=== PATIENT | female | born 1980 | race Caucasian/White ===

== ENCOUNTER 2017-08-25 14:00 | Emergency (ER) | payer MEDICAID, OTHER ==
[~2017-08-25] VITALS: Ht 162.6 cm; Wt 95.1 kg
[~2017-08-25 14:00] MED LIST: BUTA-281 PO; DICY10CA88 PO; FLUT16SP20 BOTHNARES; GUAI120018 PO; HYDR-3717 PO; LORA-641 PO; MAGCITRATE PO; OMEP40CA37 PO; ONDA4TAB12 PO; PHYT100T PO; ZOF4T PO
[2017-08-25] MEDS ORDERED: HYDROcodone/acetaminophen 10/325mg tab PO ONE (15:05)
[2017-08-25] MEDS ORDERED: phenazopyridine 100mg tablet PO ONE (15:05)
[2017-08-25 16:10] LABS: CLARITY,URINE CLOUDY (Clear); COLOR,URINE YELLOW (Yellow); GLUCOSE, URINE NEGATIVE (Neg); KETONES,URINE NEGATIVE (Neg); LEUKOCYTE ESTERASE ,URINE MODERATE (Neg); NITRITES, URINE NEGATIVE (Neg); OCCULT BLOOD,URINE LARGE (Neg); PROTEIN,URINE 100 mg/dl (Neg); URINE HCG NEGATIVE (NEG)
[2017-08-25 16:17] LABS: UA COLLECTION TYPE CLN CATCH MIDSTREAM
[2017-08-25 16:21] LABS: BACTERIA,URINE 4+ /HPF (Neg); MUCUS STRANDS MODERATE /LPF (Neg); SQUAMOUS EPITHELIAL CELL,UR MANY /LPF (FEW); WBC CLUMPS,URINE MODERATE /HPF (NEGATIVE); WBC,URINE 50-100 /HPF (0-4)
[2017-08-25 17:22] VITALS: BP 133/91
[2017-08-25] MEDS ORDERED: FLUC150T66 PO (17:55)
[2017-08-25] MEDS ORDERED: CLOT45CR29 VG (17:55)
== END 2017-08-25 18:06 | disposition home or self-care (01) ==
LOC: ER 14:00
DX: N76.0 Acute vaginitis (principal); I10 Essential (primary) hypertension; J45.909 Unspecified asthma, uncomplicated; G43.909 Migraine, unspecified, not intractable, without status migrainosus; G89.29 Other chronic pain; Z88.6 Allergy status to analgesic agent; Z88.8 Allergy status to other drugs, medicaments and biological substances; Z90.89 Acquired absence of other organs
CPT/HCPCS: 81001; 81025; 99283

== ENCOUNTER 2017-10-03 12:35 | Emergency (ER) | payer MEDICAID, OTHER ==
[~2017-10-03] VITALS: Ht 162.6 cm; Wt 90.4 kg
[~2017-10-03 12:35] MED LIST changes: +CLOT45CR29 VG
[2017-10-03 15:03] VITALS: BP 125/88
== END 2017-10-03 15:34 | disposition home or self-care (01) ==
LOC: ER 12:36
DX: T81.31XA Disruption of external operation (surgical) wound, not elsewhere classified, initial encounter (principal); S31.115A Laceration without foreign body of abdominal wall, periumbilic region without penetration into peritoneal cavity, initial encounter; G43.909 Migraine, unspecified, not intractable, without status migrainosus; I10 Essential (primary) hypertension; Z88.8 Allergy status to other drugs, medicaments and biological substances; Z79.899 Other long term (current) drug therapy; J45.909 Unspecified asthma, uncomplicated; Z90.49 Acquired absence of other specified parts of digestive tract; Z90.89 Acquired absence of other organs; X58.XXXA Exposure to other specified factors, initial encounter; Y93.89 Activity, other specified; Y92.89 Other specified places as the place of occurrence of the external cause; Y99.8 Other external cause status
CPT/HCPCS: 12020; 99284

== ENCOUNTER 2017-12-29 12:38 | Emergency (ER) | payer MEDICAID, OTHER ==
[~2017-12-29] VITALS: Ht 162.6 cm; Wt 100.0 kg
[2017-12-29 12:45] VITALS: BP 142/96
== END 2017-12-29 14:48 | disposition home or self-care (01) ==
LOC: ER 12:39
DX: S93.401A Sprain of unspecified ligament of right ankle, initial encounter (principal); G43.909 Migraine, unspecified, not intractable, without status migrainosus; I10 Essential (primary) hypertension; G89.29 Other chronic pain; F41.9 Anxiety disorder, unspecified; F32.9 Major depressive disorder, single episode, unspecified; Z90.49 Acquired absence of other specified parts of digestive tract; Z88.5 Allergy status to narcotic agent; Z88.6 Allergy status to analgesic agent; Z88.8 Allergy status to other drugs, medicaments and biological substances; Z87.442 Personal history of urinary calculi; X58.XXXA Exposure to other specified factors, initial encounter; Y93.89 Activity, other specified; Y92.89 Other specified places as the place of occurrence of the external cause; Y99.8 Other external cause status
CPT/HCPCS: 73610; 73700; 99284

== ENCOUNTER 2018-09-29 14:34 | Emergency (ER) | payer MEDICAID, OTHER ==
[~2018-09-29] VITALS: Ht 165.1 cm; Wt 97.0 kg
[~2018-09-29 14:34] MED LIST changes: -MAGCITRATE PO; +MAGN296S68 PO
[2018-09-29] MEDS ORDERED: ondansetron/PF 4mg/2ml inj IV ONE (15:10)
[2018-09-29] MEDS ORDERED: normal saline 1000ML IV soln IVB ONE (15:10)
[2018-09-29 15:30] LABS: BASOPHILS # (AUTO) 0.1 X10'3 (0-0.2); BASOPHILS % (AUTO) 0.5 % (0-1); EOSINOPHILS % (AUTO) 0.1 % (0-6); HEMATOCRIT 40.3 % (35.0-45.0); HEMOGLOBIN 13.3 g/dl (12.0-16.0); LYMPHOCYTES # (AUTO) 1.8 X10'3 (1.1-4.8); LYMPHOCYTES % (AUTO) 14.3 % (21-51); MEAN CORPUSCULAR HEMOGLOBIN 27.1 PG (27.0-31.0); MEAN CORPUSCULAR VOLUME 82.2 FL (78-98); MEAN PLATELET VOLUME 7.3 FL (7.4-10.4); MONOCYTES # (AUTO) 0.7 X10'3 (0-0.9); MONOCYTES % (AUTO) 5.5 % (2-12); NEUTROPHILS # (AUTO) 10.1 X10'3 (1.8-7.7); NEUTROPHILS % (AUTO) 79.6 % (42-75); PLATELET COUNT 256 X10'3 (140-440); RED BLOOD COUNT 4.91 X10'6 (4.20-5.60); RED CELL DISTRIBUTION WIDTH 13.3 % (11.5-14.5); WHITE BLOOD COUNT 12.7 X10'3 (4.5-11.0)
--- NOTE | 2018-09-29 15:30 | NUR ---
SNUBBER AT BEDSIDE.
[2018-09-29 15:43] LABS: ALANINE AMINOTRANSFERASE 27 U/L (12-78); ALBUMIN 3.5 G/DL (3.4-5.0); ALBUMIN/GLOBULIN RATIO 0.9 (1.1-1.5); ALKALINE PHOSPHATASE 71 IU/L (46-116); ANION GAP 9 (8-16); ASPARTATE AMINO TRANSFERASE 15 U/L (10-37); BILIRUBIN,TOTAL 0.5 MG/DL (0.1-1.0); BLOOD UREA NITROGEN 9 MG/DL (7-18); BUN/CREATININE RATIO 11.5 (6.6-38.0); CALCIUM 9.2 MG/DL (8.5-10.1); CHLORIDE 103 MMOL/L (99-107); CREATININE 0.78 MG/DL (0.40-0.90); GLUCOSE 91 MG/DL (70-104); POTASSIUM 3.3 MMOL/L (3.5-5.1); SODIUM 137 MMOL/L (135-145); TOTAL CARBON DIOXIDE 25.4 MMOL/L (24-32); TOTAL PROTEIN 7.5 G/DL (6.4-8.2); eGFR 83 ML/MIN
[2018-09-29 16:08] LABS: BETA HCG,QUANTITATIVE 88910 mIU/ml
[2018-09-29 16:17] LABS: CLARITY,URINE SLIGHTLY CLOUDY (Clear); COLOR,URINE YELLOW (Yellow); GLUCOSE, URINE NEGATIVE (Neg); KETONES,URINE 40 mg/dl (Neg); LEUKOCYTE ESTERASE ,URINE NEGATIVE (Neg); NITRITES, URINE NEGATIVE (Neg); OCCULT BLOOD,URINE NEGATIVE (Neg); PH,URINE 6.5 (4.8-8.0); PROTEIN,URINE TRACE mg/dl (Neg)
[2018-09-29 16:20] LABS: UA COLLECTION TYPE CLN CATCH MIDSTREAM
[2018-09-29 16:31] LABS: BACTERIA,URINE 1+ /HPF (Neg); MUCUS STRANDS MODERATE /LPF (Neg); RBC,URINE NONE SEEN /HPF (0-2); SQUAMOUS EPITHELIAL CELL,UR MANY /LPF (FEW)
[2018-09-29] MEDS ORDERED: CEPH-571 PO (16:44)
[2018-09-29] MEDS ORDERED: ONDA4TAB6 PO (16:44)
--- NOTE | 2018-09-29 17:05 | NUR ---
DC INSTRUCTIONS GIVEN TO PATIENT. PATIENT STATES THAT SHE CONTINUES TO NOT FEEL WELL AND IS STILL HAVING WAVES OF NAUSEA. STATES THAT SHE HAS HAD SEVERE NAUSEA AND VOMITING WITH EACH OF HER PAST PREGNANCIES AND HAS BEEN ON SEVERAL DIFFERENT ANTI-NAUSEA MEDS IN THE PAST. DISCUSSED USE OF MEDS AND TO RETURN TO THE ER IF HER N/V PERSISTS AND SHE IS UNABLE TO KEEP ANYTHING DOWN. IV REMOVED WITH TIP INTACT.
[2018-09-29 17:21] VITALS: BP 144/95
[2018-09-30] MEDS ORDERED: DOXY1TAB3 PO (11:34)
== END 2018-09-29 17:24 | disposition home or self-care (01) ==
LOC: ER 14:34
DX: O23.41 Unspecified infection of urinary tract in pregnancy, first trimester (principal); O21.9 Vomiting of pregnancy, unspecified; O26.891 Other specified pregnancy related conditions, first trimester; G43.909 Migraine, unspecified, not intractable, without status migrainosus; G89.29 Other chronic pain; O10.911 Unspecified pre-existing hypertension complicating pregnancy, first trimester; O99.511 Diseases of the respiratory system complicating pregnancy, first trimester; J45.909 Unspecified asthma, uncomplicated; Z90.49 Acquired absence of other specified parts of digestive tract; Z79.899 Other long term (current) drug therapy; Z3A.08 8 weeks gestation of pregnancy; Z88.6 Allergy status to analgesic agent; Z88.8 Allergy status to other drugs, medicaments and biological substances; Z87.442 Personal history of urinary calculi
CPT/HCPCS: 36415; 76775; 80053; 81001; 84702; 85025; 96361; 96374; 99284; J2405; J7030

== ENCOUNTER 2018-09-30 09:15 | Emergency (ER) | payer MEDICAID, OTHER ==
[~2018-09-30] VITALS: Ht 165.1 cm; Wt 103.0 kg
[~2018-09-30 09:15] MED LIST changes: +CEPH-571 PO; +ONDA4TAB6 PO
[2018-09-30] MEDS ORDERED: normal saline 1000ML IV soln IVB ONE ×2 (10:20→13:20)
[2018-09-30 11:04] LABS: BASOPHILS % (AUTO) 0.4 % (0-1); EOSINOPHILS % (AUTO) 0.1 % (0-6); HEMATOCRIT 38.8 % (35.0-45.0); HEMOGLOBIN 13.3 g/dl (12.0-16.0); LYMPHOCYTES # (AUTO) 1.7 X10'3 (1.1-4.8); LYMPHOCYTES % (AUTO) 16.4 % (21-51); MEAN CORPUSCULAR HEMOGLOBIN 27.8 PG (27.0-31.0); MEAN CORPUSCULAR HGB CONC 34.3 g/dL (33.0-36.5); MEAN PLATELET VOLUME 7.4 FL (7.4-10.4); MONOCYTES # (AUTO) 0.5 X10'3 (0-0.9); MONOCYTES % (AUTO) 5.3 % (2-12); NEUTROPHILS % (AUTO) 77.8 % (42-75); PLATELET COUNT 256 X10'3 (140-440); RED BLOOD COUNT 4.79 X10'6 (4.20-5.60); RED CELL DISTRIBUTION WIDTH 13.6 % (11.5-14.5); WHITE BLOOD COUNT 10.3 X10'3 (4.5-11.0)
[2018-09-30] MEDS ORDERED: pyridoxine 50mg tablet PO SCH (11:05)
[2018-09-30 11:06] LABS: CLARITY,URINE CLOUDY (Clear); COLOR,URINE YELLOW (Yellow); GLUCOSE, URINE NEGATIVE (Neg); KETONES,URINE >=80 mg/dl (Neg); LEUKOCYTE ESTERASE ,URINE SMALL (Neg); NITRITES, URINE NEGATIVE (Neg); OCCULT BLOOD,URINE NEGATIVE (Neg); PROTEIN,URINE TRACE mg/dl (Neg)
[2018-09-30 11:19] LABS: ALANINE AMINOTRANSFERASE 31 U/L (12-78); ALBUMIN 3.2 G/DL (3.4-5.0); ALBUMIN/GLOBULIN RATIO 0.8 (1.1-1.5); ALKALINE PHOSPHATASE 67 IU/L (46-116); ANION GAP 11 (8-16); ASPARTATE AMINO TRANSFERASE 18 U/L (10-37); BILIRUBIN,TOTAL 0.6 MG/DL (0.1-1.0); BLOOD UREA NITROGEN 6 MG/DL (7-18); BUN/CREATININE RATIO 8.1 (6.6-38.0); CALCIUM 8.9 MG/DL (8.5-10.1); CHLORIDE 104 MMOL/L (99-107); CREATININE 0.74 MG/DL (0.40-0.90); GLUCOSE 88 MG/DL (70-104); LIPASE 123 U/L (73-393); POTASSIUM 3.5 MMOL/L (3.5-5.1); SODIUM 137 MMOL/L (135-145); TOTAL CARBON DIOXIDE 22.5 MMOL/L (24-32); TOTAL PROTEIN 7.1 G/DL (6.4-8.2); eGFR 88 ML/MIN
[2018-09-30 11:19] LABS: UA COLLECTION TYPE CLN CATCH MIDSTREAM
[2018-09-30 11:21] LABS: BACTERIA,URINE 2+ /HPF (Neg); MUCUS STRANDS MANY /LPF (Neg); RBC,URINE 0-2 /HPF (0-2); SQUAMOUS EPITHELIAL CELL,UR MANY /LPF (FEW)
[2018-09-30] MEDS ORDERED: DOXY1TAB3 PO (11:34)
[2018-09-30] MEDS ORDERED: ondansetron/PF 4mg/2ml inj IV ONE ×2 (12:00→13:20)
[2018-09-30] MEDS ORDERED: diphenhydrAMINE 50 mg/ml inj IV ONE (12:00)
[2018-09-30 14:04] VITALS: BP 140/88
== END 2018-09-30 14:10 | disposition home or self-care (01) ==
LOC: ER 09:16
DX: O21.9 Vomiting of pregnancy, unspecified (principal); O26.891 Other specified pregnancy related conditions, first trimester; G43.909 Migraine, unspecified, not intractable, without status migrainosus; G89.29 Other chronic pain; Z3A.08 8 weeks gestation of pregnancy; Z90.49 Acquired absence of other specified parts of digestive tract; Z87.442 Personal history of urinary calculi; Z88.6 Allergy status to analgesic agent; Z79.899 Other long term (current) drug therapy
CPT/HCPCS: 36415; 80053; 81001; 83690; 85025; 96361; 96374; 96375; 96376; 99284; J1200; J2405; J7030

== ENCOUNTER 2018-09-30 21:08 | Emergency (ER) | payer MEDICAID, OTHER ==
[~2018-09-30] VITALS: Ht 165.1 cm; Wt 103.6 kg
[~2018-09-30 21:08] MED LIST changes: +DOXY1TAB3 PO
[2018-09-30 21:23] VITALS: BP 141/97
[2018-09-30] MEDS ORDERED: diphenhydrAMINE 25mg capsule PO ONE (22:10)
[2018-09-30] MEDS ORDERED: cephalexin 250mg capsule PO ONE (22:35)
== END 2018-09-30 22:56 | disposition home or self-care (01) ==
LOC: ER 22:52
DX: O21.9 Vomiting of pregnancy, unspecified (principal); O9A.211 Injury, poisoning and certain other consequences of external causes complicating pregnancy, first trimester; T78.40XA Allergy, unspecified, initial encounter; O26.891 Other specified pregnancy related conditions, first trimester; G43.909 Migraine, unspecified, not intractable, without status migrainosus; G89.29 Other chronic pain; O10.911 Unspecified pre-existing hypertension complicating pregnancy, first trimester; O99.511 Diseases of the respiratory system complicating pregnancy, first trimester; J45.909 Unspecified asthma, uncomplicated; Z90.49 Acquired absence of other specified parts of digestive tract; Z88.6 Allergy status to analgesic agent; Z3A.08 8 weeks gestation of pregnancy; Z88.8 Allergy status to other drugs, medicaments and biological substances; Z79.899 Other long term (current) drug therapy; Y92.89 Other specified places as the place of occurrence of the external cause
CPT/HCPCS: 93005; 99283; Q0163

== ENCOUNTER 2018-10-18 19:06 | Inpatient (IN) | payer SELFPAY ==
[~2018-10-18] VITALS: Ht 152.4 cm; Wt 100.0 kg
[~2018-10-18 19:06] MED LIST changes: +OMEP40CA13 PO; -OMEP40CA37 PO
[2018-10-18] MEDS ORDERED: normal saline 1000ml 1,000 ML IVB ONE (19:18)
[2018-10-18 19:37] LABS: URINE HCG POSITIVE (NEG)
[2018-10-18 19:39] LABS: CLARITY,URINE CLOUDY (Clear); COLOR,URINE YELLOW (Yellow); GLUCOSE, URINE NEGATIVE (Neg); KETONES,URINE TRACE mg/dl (Neg); LEUKOCYTE ESTERASE ,URINE MODERATE (Neg); NITRITES, URINE NEGATIVE (Neg); OCCULT BLOOD,URINE NEGATIVE (Neg); PROTEIN,URINE 30 mg/dl (Neg)
[2018-10-18 19:42] LABS: UA COLLECTION TYPE NON-SPECIFIED
[2018-10-18 19:42] LABS: BASOPHILS % (AUTO) 0.3 % (0-1); EOSINOPHILS % (AUTO) 0.2 % (0-6); HEMATOCRIT 42.4 % (35.0-45.0); HEMOGLOBIN 14.5 g/dl (12.0-16.0); LYMPHOCYTES # (AUTO) 2.2 X10'3 (1.1-4.8); LYMPHOCYTES % (AUTO) 17.8 % (21-51); MEAN CORPUSCULAR HEMOGLOBIN 28.1 PG (27.0-31.0); MEAN CORPUSCULAR HGB CONC 34.3 g/dL (33.0-36.5); MEAN CORPUSCULAR VOLUME 82.1 FL (78-98); MEAN PLATELET VOLUME 7.4 FL (7.4-10.4); MONOCYTES # (AUTO) 0.7 X10'3 (0-0.9); MONOCYTES % (AUTO) 5.6 % (2-12); NEUTROPHILS # (AUTO) 9.3 X10'3 (1.8-7.7); NEUTROPHILS % (AUTO) 76.1 % (42-75); PLATELET COUNT 313 X10'3 (140-440); RED BLOOD COUNT 5.16 X10'6 (4.20-5.60); RED CELL DISTRIBUTION WIDTH 14.5 % (11.5-14.5); WHITE BLOOD COUNT 12.3 X10'3 (4.5-11.0)
[2018-10-18 19:44] LABS: BACTERIA,URINE FEW /HPF (Neg); MUCUS STRANDS MODERATE /LPF (Neg); RBC,URINE NONE SEEN /HPF (0-2); SQUAMOUS EPITHELIAL CELL,UR MODERATE /LPF (FEW)
[2018-10-18 19:54] LABS: ALANINE AMINOTRANSFERASE 46 U/L (12-78); ALBUMIN 3.4 G/DL (3.4-5.0); ALBUMIN/GLOBULIN RATIO 0.7 (1.1-1.5); ALKALINE PHOSPHATASE 92 IU/L (46-116); ANION GAP 12 (8-16); ASPARTATE AMINO TRANSFERASE 25 U/L (10-37); BILIRUBIN,TOTAL 0.3 MG/DL (0.1-1.0); BLOOD UREA NITROGEN 4 MG/DL (7-18); BUN/CREATININE RATIO 5.7 (6.6-38.0); CALCIUM 9.3 MG/DL (8.5-10.1); CHLORIDE 104 MMOL/L (99-107); GLUCOSE 100 MG/DL (70-104); POTASSIUM 3.8 MMOL/L (3.5-5.1); SODIUM 139 MMOL/L (135-145); TOTAL CARBON DIOXIDE 23.4 MMOL/L (24-32); TOTAL PROTEIN 8.1 G/DL (6.4-8.2); eGFR > 90 ML/MIN
[2018-10-18 20:31] LABS: BETA HCG,QUANTITATIVE 67696 mIU/ml
[2018-10-18] MEDS ORDERED: CefTRIAXone/D5W-Rocephin 1gm 50 ML IV ONE (20:35)
[2018-10-18] MEDS ORDERED: CEPH-572 PO (20:51)
[2018-10-18] MEDS ORDERED: morphine 2 MG/ML inj. syringe IV ONE (21:10)
[2018-10-18] MEDS ORDERED: ondansetron/PF 4mg/2ml inj IV ONE (21:10)
[2018-10-18] MEDS ORDERED: magnesium 2GM in 50ml NS 50 ML IV PRN (22:40)
[2018-10-18] MEDS ORDERED: magnesium Cl slow-release 64mg tablet PO PRN (22:40)
[2018-10-18] MEDS ORDERED: potassium CL 10mEq/100ml bag 100 ML IV PRN ×2 (22:40)
[2018-10-18] MEDS ORDERED: magnesium 4gm in 100ml NS 100 ML IV PRN (22:40)
[2018-10-18] MEDS ORDERED: potassium Cl 20 mEq SR tablet PO PRN ×2 (22:40)
--- NOTE | 2018-10-18 22:55 | NUR ---
Received report from BLINDSTITCH LAPEL PADDERBEVERLY Bach. Patient to follow shortly.
--- NOTE | 2018-10-18 23:10 | NUR ---
Patient arrived to floor via gurney. A&Ox4, and ambulated from gurney to bed.
[2018-10-18 23:30] VITALS: BP 124/72
[2018-10-18] MEDS: normal saline 1000ml 1,000 ML IV SCH (23:37)
[2018-10-18] MEDS: ondansetron/PF 4mg/2ml inj IV PRN (23:49)
--- NOTE | 2018-10-19 | NUR ---
Patients' PIV to RAC stopped working, cannula had become bent. New PIV started to LAC. Fluids hooked back up and infusing.
[2018-10-19 05:23] LABS: BASOPHILS % (AUTO) 0.2 % (0-1); EOSINOPHILS % (AUTO) 0.1 % (0-6); HEMATOCRIT 34.4 % (35.0-45.0); HEMOGLOBIN 11.6 g/dl (12.0-16.0); LYMPHOCYTES # (AUTO) 2.4 X10'3 (1.1-4.8); LYMPHOCYTES % (AUTO) 24.7 % (21-51); MEAN CORPUSCULAR HEMOGLOBIN 28.2 PG (27.0-31.0); MEAN CORPUSCULAR HGB CONC 33.8 g/dL (33.0-36.5); MEAN CORPUSCULAR VOLUME 83.5 FL (78-98); MEAN PLATELET VOLUME 7.4 FL (7.4-10.4); MONOCYTES # (AUTO) 0.6 X10'3 (0-0.9); MONOCYTES % (AUTO) 5.7 % (2-12); NEUTROPHILS # (AUTO) 6.7 X10'3 (1.8-7.7); NEUTROPHILS % (AUTO) 69.3 % (42-75); PLATELET COUNT 233 X10'3 (140-440); RED BLOOD COUNT 4.12 X10'6 (4.20-5.60); RED CELL DISTRIBUTION WIDTH 14.1 % (11.5-14.5); WHITE BLOOD COUNT 9.7 X10'3 (4.5-11.0)
[2018-10-19 05:28] LABS: ALBUMIN 2.5 G/DL (3.4-5.0); ANION GAP 8 (8-16); BLOOD UREA NITROGEN 5 MG/DL (7-18); BUN/CREATININE RATIO 9.3 (6.6-38.0); CALCIUM 8.2 MG/DL (8.5-10.1); CHLORIDE 109 MMOL/L (99-107); CREATININE 0.54 MG/DL (0.40-0.90); GLUCOSE 77 MG/DL (70-104); MAGNESIUM 1.6 MG/DL (1.5-2.4); POTASSIUM 3.3 MMOL/L (3.5-5.1); SODIUM 140 MMOL/L (135-145); TOTAL CARBON DIOXIDE 23.3 MMOL/L (24-32); eGFR > 90 ML/MIN
--- NOTE | 2018-10-19 06:30 | NUR ---
Problems reprioritized. Patient report given, questions answered & plan of care reviewed with Lisandra PAUL.
[2018-10-19 07:00] VITALS: BP 118/80
--- NOTE | 2018-10-19 07:07 | NUR ---
Patient in room SU 344. I have received report from Noemí PAUL and had the opportunity to ask questions and assume patient care.
[2018-10-19] MEDS: morphine 2 MG/ML inj. syringe IV PRN ×4 (07:18→19:55)
[2018-10-19] MEDS: ondansetron/PF 4mg/2ml inj IV PRN ×3 (07:18→19:53)
[2018-10-19] MEDS: CefTRIAXone/D5W-Rocephin 1gm 50 ML IV SCH (07:19)
[2018-10-19] MEDS: K and/or MAG REPLACEMENT MC SCH (08:00)
[2018-10-19] MEDS ORDERED: potassium Cl 40MEQ/NS 500ml 500 ML IV ONE (08:05)
[2018-10-19] MEDS: normal saline 1000ml 1,000 ML IV SCH ×2 (08:37→10:36)
[2018-10-19] MEDS ORDERED: bisacodyl 5mg tablet.DR PO ONE (08:45)
[2018-10-19 11:00] VITALS: BP 123/82
--- NOTE | 2018-10-19 18:44 | NUR ---
Problems reprioritized. Patient report given, questions answered & plan of care reviewed with Pat RN.
[2018-10-19 19:30] VITALS: BP 128/93
--- NOTE | 2018-10-19 19:30 | NUR ---
pt voided in toilet (behind HAT); states she has cramping when to urinated Addendum: 10/20/18 at 0054 by Ledy Kunz RN Amended: Links added.
[2018-10-19] MEDS: lactobacillus rhamnosus 10,000 MMU CELLS/CAPSULE PO SCH (19:56)
[2018-10-20] VITALS: BP 117/76
[2018-10-20] MEDS: ondansetron/PF 4mg/2ml inj IV PRN ×2 (02:53→09:27)
[2018-10-20] MEDS: morphine 2 MG/ML inj. syringe IV PRN (02:54)
[2018-10-20 05:45] LABS: ALBUMIN 2.6 G/DL (3.4-5.0); ANION GAP 13 (8-16); BLOOD UREA NITROGEN 2 MG/DL (7-18); BUN/CREATININE RATIO 3.7 (6.6-38.0); CALCIUM 8.9 MG/DL (8.5-10.1); CHLORIDE 107 MMOL/L (99-107); CREATININE 0.54 MG/DL (0.40-0.90); GLUCOSE 68 MG/DL (70-104); MAGNESIUM 1.7 MG/DL (1.5-2.4); POTASSIUM 3.7 MMOL/L (3.5-5.1); SODIUM 140 MMOL/L (135-145); TOTAL CARBON DIOXIDE 20.1 MMOL/L (24-32); eGFR > 90 ML/MIN
[2018-10-20 05:46] LABS: BASOPHILS % (AUTO) 0.2 % (0-1); EOSINOPHILS % (AUTO) 0.1 % (0-6); HEMATOCRIT 36.4 % (35.0-45.0); HEMOGLOBIN 12.2 g/dl (12.0-16.0); LYMPHOCYTES # (AUTO) 1.9 X10'3 (1.1-4.8); LYMPHOCYTES % (AUTO) 20.7 % (21-51); MEAN CORPUSCULAR HEMOGLOBIN 28.2 PG (27.0-31.0); MEAN CORPUSCULAR HGB CONC 33.6 g/dL (33.0-36.5); MEAN PLATELET VOLUME 7.5 FL (7.4-10.4); MONOCYTES # (AUTO) 0.5 X10'3 (0-0.9); MONOCYTES % (AUTO) 5.2 % (2-12); NEUTROPHILS # (AUTO) 6.8 X10'3 (1.8-7.7); NEUTROPHILS % (AUTO) 73.8 % (42-75); PLATELET COUNT 232 X10'3 (140-440); RED BLOOD COUNT 4.33 X10'6 (4.20-5.60); RED CELL DISTRIBUTION WIDTH 14.5 % (11.5-14.5); WHITE BLOOD COUNT 9.2 X10'3 (4.5-11.0)
--- NOTE | 2018-10-20 06:34 | NUR ---
Patient in room SU 344. I have received report from Pat RN and had the opportunity to ask questions and assume patient care.
[2018-10-20 07:00] VITALS: BP 118/78
[2018-10-20] MEDS: K and/or MAG REPLACEMENT MC SCH (08:00)
[2018-10-20] MEDS: lactobacillus rhamnosus 10,000 MMU CELLS/CAPSULE PO SCH (08:05)
[2018-10-20] MEDS: CefTRIAXone/D5W-Rocephin 1gm 50 ML IV SCH (08:07)
[2018-10-20] MEDS: normal saline 1000ml 1,000 ML IV SCH ×2 (08:07)
[2018-10-20] MEDS ORDERED: DOCU-148 PO (09:30)
--- NOTE | 2018-10-20 10:40 | NUR ---
Patient trying to contact family for discharge. Has not been able to get ahold of anyone yet.
--- NOTE | 2018-10-20 11:49 | NUR ---
Patients discharge instructions reviewed with patient and patient verbalized understanding. Patients IV dc'd cannula intact. Patient states she has all her belongings. Patient was taken to vehicle via wheelchair by auxillary.
== END 2018-10-20 11:40 | disposition home or self-care (01) | DRG 776 ==
LOC: ER 19:07 → SUR 3N 23:06 → CMPBEDREQ 10-19 15:16
PROVIDERS: ADMIT Internal Medicine; ATTEND Internal Medicine
DX: O99.89 Other specified diseases and conditions complicating pregnancy, childbirth and the puerperium (principal); J45.909 Unspecified asthma, uncomplicated; K21.9 Gastro-esophageal reflux disease without esophagitis; N20.0 Calculus of kidney; O99.351 Diseases of the nervous system complicating pregnancy, first trimester; O99.511 Diseases of the respiratory system complicating pregnancy, first trimester; O99.341 Other mental disorders complicating pregnancy, first trimester; F41.8 Other specified anxiety disorders; O99.611 Diseases of the digestive system complicating pregnancy, first trimester; G43.909 Migraine, unspecified, not intractable, without status migrainosus; Z3A.11 11 weeks gestation of pregnancy; Z88.6 Allergy status to analgesic agent; Z88.8 Allergy status to other drugs, medicaments and biological substances; Z79.899 Other long term (current) drug therapy; Z90.49 Acquired absence of other specified parts of digestive tract
CPT/HCPCS: 36415; 76775; 80048; 80053; 81001; 81025; 83735; 84702; 85025; 85610; 87081; 87088; 96365; 96375; 99285; G0378; J0696; J2270; J2405; J3480; J7030

== ENCOUNTER 2018-10-23 17:36 | Emergency (ER) | payer SELFPAY ==
[~2018-10-23] VITALS: Ht 165.1 cm; Wt 98.0 kg
[~2018-10-23 17:36] MED LIST changes: -BUTA-281 PO; -CEPH-571 PO; -CLOT45CR29 VG; -DICY10CA88 PO; +DOCU-148 PO; -DOXY1TAB3 PO; -FLUT16SP20 BOTHNARES; -GUAI120018 PO; -HYDR-3717 PO; -LORA-641 PO; -MAGN296S68 PO; -OMEP40CA13 PO; -ONDA4TAB6 PO; -PHYT100T PO; -ZOF4T PO
[2018-10-23] MEDS ORDERED: normal saline 1000ML IV soln IVB ONE (18:00)
[2018-10-23] MEDS ORDERED: ondansetron/PF 4mg/2ml inj IV ONE (18:00)
[2018-10-23 18:14] LABS: BASOPHILS % (AUTO) 0.4 % (0-1); EOSINOPHILS % (AUTO) 0.1 % (0-6); HEMOGLOBIN 14.1 g/dl (12.0-16.0); LYMPHOCYTES # (AUTO) 1.6 X10'3 (1.1-4.8); LYMPHOCYTES % (AUTO) 13.8 % (21-51); MEAN CORPUSCULAR HEMOGLOBIN 28.5 PG (27.0-31.0); MEAN CORPUSCULAR HGB CONC 34.4 g/dL (33.0-36.5); MEAN CORPUSCULAR VOLUME 82.9 FL (78-98); MEAN PLATELET VOLUME 7.3 FL (7.4-10.4); MONOCYTES # (AUTO) 0.5 X10'3 (0-0.9); MONOCYTES % (AUTO) 4.4 % (2-12); NEUTROPHILS # (AUTO) 9.5 X10'3 (1.8-7.7); NEUTROPHILS % (AUTO) 81.3 % (42-75); PLATELET COUNT 266 X10'3 (140-440); RED BLOOD COUNT 4.94 X10'6 (4.20-5.60); RED CELL DISTRIBUTION WIDTH 14.7 % (11.5-14.5); WHITE BLOOD COUNT 11.7 X10'3 (4.5-11.0)
[2018-10-23] MEDS ORDERED: DOXY1TAB3 PO (18:42)
[2018-10-23 18:44] LABS: ALANINE AMINOTRANSFERASE 41 U/L (12-78); ALBUMIN 3.1 G/DL (3.4-5.0); ALBUMIN/GLOBULIN RATIO 0.7 (1.1-1.5); ALKALINE PHOSPHATASE 90 IU/L (46-116); ANION GAP 12 (8-16); ASPARTATE AMINO TRANSFERASE 12 U/L (10-37); BILIRUBIN,TOTAL 0.4 MG/DL (0.1-1.0); BLOOD UREA NITROGEN 8 MG/DL (7-18); BUN/CREATININE RATIO 12.5 (6.6-38.0); CALCIUM 9.1 MG/DL (8.5-10.1); CHLORIDE 104 MMOL/L (99-107); CREATININE 0.64 MG/DL (0.40-0.90); GLUCOSE 80 MG/DL (70-104); POTASSIUM 3.6 MMOL/L (3.5-5.1); SODIUM 139 MMOL/L (135-145); TOTAL CARBON DIOXIDE 22.7 MMOL/L (24-32); TOTAL PROTEIN 7.4 G/DL (6.4-8.2); eGFR > 90 ML/MIN
[2018-10-23 19:21] VITALS: BP 130/92
[2018-10-23] MEDS ORDERED: ONDA4TAB6 PO (19:48)
[2018-10-23] MEDS ORDERED: diphenhydrAMINE 50 mg/ml inj IV ONE (19:50)
== END 2018-10-23 20:00 | disposition home or self-care (01) ==
LOC: ER 17:37
DX: O21.9 Vomiting of pregnancy, unspecified (principal); O16.1 Unspecified maternal hypertension, first trimester; O99.341 Other mental disorders complicating pregnancy, first trimester; O99.511 Diseases of the respiratory system complicating pregnancy, first trimester; O26.891 Other specified pregnancy related conditions, first trimester; R11.0 Nausea; F41.9 Anxiety disorder, unspecified; F32.9 Major depressive disorder, single episode, unspecified; G43.909 Migraine, unspecified, not intractable, without status migrainosus; G89.29 Other chronic pain; Z87.442 Personal history of urinary calculi; Z90.49 Acquired absence of other specified parts of digestive tract; Z90.89 Acquired absence of other organs; Z98.890 Other specified postprocedural states; Z88.6 Allergy status to analgesic agent; Z88.8 Allergy status to other drugs, medicaments and biological substances; Z79.899 Other long term (current) drug therapy; Z3A.12 12 weeks gestation of pregnancy
CPT/HCPCS: 36415; 80053; 85025; 96361; 96374; 96375; 99284; J1200; J2405; J7030

== ENCOUNTER 2018-10-27 19:40 | Emergency (ER) | payer SELFPAY ==
[~2018-10-27] VITALS: Ht 152.4 cm; Wt 96.0 kg
[~2018-10-27 19:40] MED LIST changes: +DOXY1TAB3 PO; +ONDA4TAB6 PO
[2018-10-27] MEDS ORDERED: dextrose 5%-normal saline 1,000 ML IV ONE ×2 (20:15→23:50)
[2018-10-27 20:26] LABS: URINE HCG POSITIVE (NEG)
[2018-10-27 20:28] LABS: CLARITY,URINE CLOUDY (Clear); COLOR,URINE YELLOW (Yellow); GLUCOSE, URINE NEGATIVE (Neg); KETONES,URINE >=80 mg/dl (Neg); LEUKOCYTE ESTERASE ,URINE TRACE (Neg); NITRITES, URINE NEGATIVE (Neg); OCCULT BLOOD,URINE NEGATIVE (Neg); PROTEIN,URINE 30 mg/dl (Neg)
[2018-10-27 20:29] LABS: UA COLLECTION TYPE CLN CATCH MIDSTREAM
[2018-10-27] MEDS ORDERED: famotidine/PF 10 mg/ml inj IV ONE (20:40)
[2018-10-27] MEDS ORDERED: ondansetron/PF 4mg/2ml inj IV ONE (20:40)
[2018-10-27 20:41] LABS: BACTERIA,URINE 1+ /HPF (Neg); RBC,URINE NONE SEEN /HPF (0-2); SQUAMOUS EPITHELIAL CELL,UR MODERATE /LPF (FEW)
[2018-10-27 20:42] LABS: MUCUS STRANDS FEW /LPF (Neg)
[2018-10-27] MEDS ORDERED: DOXY1TAB3 PO (20:43)
[2018-10-27 20:48] LABS: BASOPHILS % (AUTO) 0.3 % (0-1); EOSINOPHILS % (AUTO) 0.1 % (0-6); HEMATOCRIT 41.8 % (35.0-45.0); HEMOGLOBIN 14.6 g/dl (12.0-16.0); LYMPHOCYTES # (AUTO) 1.9 X10'3 (1.1-4.8); LYMPHOCYTES % (AUTO) 16.8 % (21-51); MEAN CORPUSCULAR HEMOGLOBIN 28.8 PG (27.0-31.0); MEAN CORPUSCULAR VOLUME 82.4 FL (78-98); MEAN PLATELET VOLUME 7.8 FL (7.4-10.4); MONOCYTES # (AUTO) 0.6 X10'3 (0-0.9); MONOCYTES % (AUTO) 5.6 % (2-12); NEUTROPHILS # (AUTO) 8.9 X10'3 (1.8-7.7); NEUTROPHILS % (AUTO) 77.2 % (42-75); PLATELET COUNT 260 X10'3 (140-440); RED BLOOD COUNT 5.08 X10'6 (4.20-5.60); RED CELL DISTRIBUTION WIDTH 14.6 % (11.5-14.5); WHITE BLOOD COUNT 11.5 X10'3 (4.5-11.0)
[2018-10-27 20:58] LABS: ALANINE AMINOTRANSFERASE 34 U/L (12-78); ALBUMIN 3.3 G/DL (3.4-5.0); ALBUMIN/GLOBULIN RATIO 0.7 (1.1-1.5); ALKALINE PHOSPHATASE 95 IU/L (46-116); ANION GAP 12 (8-16); ASPARTATE AMINO TRANSFERASE 12 U/L (10-37); BILIRUBIN,TOTAL 0.4 MG/DL (0.1-1.0); BLOOD UREA NITROGEN 5 MG/DL (7-18); BUN/CREATININE RATIO 7.5 (6.6-38.0); CALCIUM 9.3 MG/DL (8.5-10.1); CHLORIDE 104 MMOL/L (99-107); CREATININE 0.67 MG/DL (0.40-0.90); GLUCOSE 86 MG/DL (70-104); POTASSIUM 3.6 MMOL/L (3.5-5.1); SODIUM 137 MMOL/L (135-145); TOTAL CARBON DIOXIDE 20.7 MMOL/L (24-32); TOTAL PROTEIN 7.8 G/DL (6.4-8.2); eGFR > 90 ML/MIN
--- NOTE | 2018-10-27 21:09 | NUR ---
VERBERAL ORDER FROM DR JIMENEZ TO BOLUS 2L D5NS IV.
[2018-10-27 21:20] LABS: BETA HCG,QUANTITATIVE 57489 mIU/ml
[2018-10-27] MEDS: dextrose 5%-normal saline 1,000 ML IV SCH ×2 (21:30→22:20)
--- NOTE | 2018-10-27 22:18 | NUR ---
emesis x1 50cc bile in color
[2018-10-27] MEDS ORDERED: proMETHazine 25mg tablet PO ONE (22:50)
--- NOTE | 2018-10-28 01:25 | NUR ---
dc paperwork recevied, vs obtained and IV pulled for pov transfer to [facility] where she was to be directly sent to OBGYN upon arrival at their ER. While processing depart assessment [facility] called to say pt would not have a room ready and that she will have to be a facility:facility transfer. Gurinder De Jesus and Dr Guthrie in process of determining procedural process necesary for pt's care by Dr Arriaga @ [facility]. Pt in bed awaiting disposition; in truck asleep.
[2018-10-28 01:30] VITALS: BP 153/74
--- NOTE | 2018-10-28 01:58 | NUR ---
RN:RN WITH BEVERLY WHYTE @ [facility] ([phone]), FOR POV TRANSFER TO PEDS DEPARTMENT BED 8a. PT PROVIDED PACKET AND VERBALIZED UNDERSTANDING OF TRANSFER INSTRUCTIONS.
== END 2018-10-28 02:09 | disposition short-term general hospital (02) ==
LOC: ER 19:40
DX: O21.0 Mild hyperemesis gravidarum (principal); O00.01 Abdominal pregnancy with intrauterine pregnancy; O26.891 Other specified pregnancy related conditions, first trimester; O99.341 Other mental disorders complicating pregnancy, first trimester; O16.1 Unspecified maternal hypertension, first trimester; O99.511 Diseases of the respiratory system complicating pregnancy, first trimester; R10.13 Epigastric pain; R10.32 Left lower quadrant pain; R10.31 Right lower quadrant pain; G43.909 Migraine, unspecified, not intractable, without status migrainosus; J45.909 Unspecified asthma, uncomplicated; G89.29 Other chronic pain; F41.8 Other specified anxiety disorders; Z90.49 Acquired absence of other specified parts of digestive tract; Z90.89 Acquired absence of other organs; Z98.890 Other specified postprocedural states; Z3A.11 11 weeks gestation of pregnancy; Z87.442 Personal history of urinary calculi; Z88.6 Allergy status to analgesic agent; Z88.8 Allergy status to other drugs, medicaments and biological substances; Z79.899 Other long term (current) drug therapy
CPT/HCPCS: 36415; 76801; 80053; 81001; 81025; 84443; 84702; 85025; 87088; 96361; 96374; 96375; 99285; J2405; J3490; J7042; Q0169

== ENCOUNTER 2018-11-01 10:17 | Emergency (ER) | payer SELFPAY ==
[~2018-11-01] VITALS: Ht 165.1 cm; Wt 100.0 kg
[2018-11-01] MEDS ORDERED: diphenhydrAMINE 50 mg/ml inj IV ONE (10:35)
[2018-11-01] MEDS ORDERED: proMETHazine 25mg rectal suppository RC ONE (10:35)
[2018-11-01] MEDS ORDERED: normal saline 1000ML IV soln IVB ONE ×2 (10:35→11:25)
[2018-11-01] MEDS ORDERED: sucralfate 1gm/10ml UD suspension PO STA (10:38)
[2018-11-01 10:48] LABS: BASOPHILS # (AUTO) 0.1 X10'3 (0-0.2); BASOPHILS % (AUTO) 0.7 % (0-1); EOSINOPHILS % (AUTO) 0.1 % (0-6); HEMATOCRIT 42.6 % (35.0-45.0); HEMOGLOBIN 14.3 g/dl (12.0-16.0); LYMPHOCYTES # (AUTO) 1.1 X10'3 (1.1-4.8); LYMPHOCYTES % (AUTO) 11.7 % (21-51); MEAN CORPUSCULAR HGB CONC 33.6 g/dL (33.0-36.5); MEAN CORPUSCULAR VOLUME 83.5 FL (78-98); MEAN PLATELET VOLUME 7.3 FL (7.4-10.4); MONOCYTES # (AUTO) 0.4 X10'3 (0-0.9); MONOCYTES % (AUTO) 4.2 % (2-12); NEUTROPHILS # (AUTO) 8.1 X10'3 (1.8-7.7); NEUTROPHILS % (AUTO) 83.3 % (42-75); PLATELET COUNT 257 X10'3 (140-440); RED BLOOD COUNT 5.11 X10'6 (4.20-5.60); RED CELL DISTRIBUTION WIDTH 14.3 % (11.5-14.5); WHITE BLOOD COUNT 9.7 X10'3 (4.5-11.0)
[2018-11-01 11:03] LABS: ALANINE AMINOTRANSFERASE 50 U/L (12-78); ALBUMIN/GLOBULIN RATIO 0.7 (1.1-1.5); ALKALINE PHOSPHATASE 85 IU/L (46-116); ANION GAP 12 (8-16); ASPARTATE AMINO TRANSFERASE 30 U/L (10-37); BILIRUBIN,TOTAL 0.5 MG/DL (0.1-1.0); BLOOD UREA NITROGEN 7 MG/DL (7-18); BUN/CREATININE RATIO 10.6 (6.6-38.0); CHLORIDE 105 MMOL/L (99-107); CREATININE 0.66 MG/DL (0.40-0.90); GLUCOSE 99 MG/DL (70-104); MAGNESIUM 1.8 MG/DL (1.5-2.4); POTASSIUM 3.4 MMOL/L (3.5-5.1); SODIUM 141 MMOL/L (135-145); TOTAL CARBON DIOXIDE 24.3 MMOL/L (24-32); TOTAL PROTEIN 7.3 G/DL (6.4-8.2); eGFR > 90 ML/MIN
[2018-11-01] MEDS ORDERED: PROM12.574 (11:34)
[2018-11-01 12:30] VITALS: BP 115/54
== END 2018-11-01 12:23 | disposition home or self-care (01) ==
LOC: ER 10:18
DX: O21.0 Mild hyperemesis gravidarum (principal); O26.891 Other specified pregnancy related conditions, first trimester; O99.341 Other mental disorders complicating pregnancy, first trimester; O99.511 Diseases of the respiratory system complicating pregnancy, first trimester; O16.1 Unspecified maternal hypertension, first trimester; R10.31 Right lower quadrant pain; R10.32 Left lower quadrant pain; G43.909 Migraine, unspecified, not intractable, without status migrainosus; F41.9 Anxiety disorder, unspecified; J45.909 Unspecified asthma, uncomplicated; G89.29 Other chronic pain; F32.9 Major depressive disorder, single episode, unspecified; Z3A.12 12 weeks gestation of pregnancy; Z87.442 Personal history of urinary calculi; Z90.49 Acquired absence of other specified parts of digestive tract; Z90.89 Acquired absence of other organs; Z98.890 Other specified postprocedural states; Z88.6 Allergy status to analgesic agent; Z88.8 Allergy status to other drugs, medicaments and biological substances; Z79.899 Other long term (current) drug therapy
CPT/HCPCS: 36415; 80053; 83735; 85025; 96361; 96374; 99283; J1200; J7030

== ENCOUNTER 2019-07-08 15:07 | Emergency (ER) | payer MEDICAID, SELFPAY ==
[~2019-07-08] VITALS: Ht 165.1 cm; Wt 96.5 kg
[~2019-07-08 15:07] MED LIST changes: +PROM12.574
[2019-07-08 17:30] LABS: URINE HCG NEGATIVE (NEG)
[2019-07-08 17:44] LABS: BASOPHILS # (AUTO) 0.1 X10'3 (0-0.2); BASOPHILS % (AUTO) 0.6 % (0-1); EOSINOPHILS % (AUTO) 0.3 % (0-6); HEMATOCRIT 36.2 % (35.0-45.0); HEMOGLOBIN 11.8 g/dl (12.0-16.0); LYMPHOCYTES # (AUTO) 2.1 X10'3 (1.1-4.8); LYMPHOCYTES % (AUTO) 22.5 % (21-51); MEAN CORPUSCULAR HEMOGLOBIN 25.1 PG (27.0-31.0); MEAN CORPUSCULAR HGB CONC 32.6 g/dL (33.0-36.5); MEAN CORPUSCULAR VOLUME 76.9 FL (78-98); MEAN PLATELET VOLUME 7.5 FL (7.4-10.4); MONOCYTES # (AUTO) 0.5 X10'3 (0-0.9); MONOCYTES % (AUTO) 5.7 % (2-12); NEUTROPHILS # (AUTO) 6.5 X10'3 (1.8-7.7); NEUTROPHILS % (AUTO) 70.9 % (42-75); PLATELET COUNT 303 X10'3 (140-440); RED BLOOD COUNT 4.71 X10'6 (4.20-5.60); RED CELL DISTRIBUTION WIDTH 15.1 % (11.5-14.5); WHITE BLOOD COUNT 9.2 X10'3 (4.5-11.0)
[2019-07-08 17:51] LABS: CLARITY,URINE CLOUDY (Clear); GLUCOSE, URINE NEGATIVE (Neg); KETONES,URINE NEGATIVE (Neg); LEUKOCYTE ESTERASE ,URINE TRACE (Neg); NITRITES, URINE NEGATIVE (Neg); OCCULT BLOOD,URINE LARGE (Neg); PROTEIN,URINE TRACE mg/dl (Neg); UROBILINOGEN,URINE 0.2 E.U/dL (0.2-1.0)
[2019-07-08 17:52] LABS: PARTIAL THROMBOPLASTIN TIME 26 SECONDS (22-32)
[2019-07-08 17:54] LABS: ALANINE AMINOTRANSFERASE 17 U/L (12-78); ALBUMIN 3.4 G/DL (3.4-5.0); ALBUMIN/GLOBULIN RATIO 0.9 (1.1-1.5); ALKALINE PHOSPHATASE 81 IU/L (46-116); ANION GAP 7 (8-16); ASPARTATE AMINO TRANSFERASE 13 U/L (10-37); BILIRUBIN,TOTAL 0.3 MG/DL (0.1-1.0); BLOOD UREA NITROGEN 6 MG/DL (7-18); BUN/CREATININE RATIO 6.5 (6.6-38.0); CALCIUM 9.4 MG/DL (8.5-10.1); CHLORIDE 105 MMOL/L (99-107); CREATININE 0.92 MG/DL (0.40-0.90); GLUCOSE 86 MG/DL (70-104); POTASSIUM 3.9 MMOL/L (3.5-5.1); SODIUM 141 MMOL/L (135-145); TOTAL CARBON DIOXIDE 29.1 MMOL/L (24-32); TOTAL PROTEIN 7.1 G/DL (6.4-8.2); eGFR 68 ML/MIN
[2019-07-08 18:13] LABS: COLOR,URINE AMBER (Yellow); UA COLLECTION TYPE CLN CATCH MIDSTREAM
[2019-07-08 18:15] LABS: BACTERIA,URINE FEW /HPF (Neg); MUCUS STRANDS MANY /LPF (Neg); RBC,URINE TNTC /HPF (0-2); SQUAMOUS EPITHELIAL CELL,UR FEW /LPF (FEW)
[2019-07-08 18:33] VITALS: BP 146/100
[2019-07-08] MEDS ORDERED: FERR324T4 PO (19:01)
[2019-07-08] MEDS ORDERED: MEDR10TA PO (19:01)
== END 2019-07-08 19:14 | disposition home or self-care (01) ==
LOC: ER 15:07
DX: N93.8 Other specified abnormal uterine and vaginal bleeding (principal); E66.9 Obesity, unspecified; G43.909 Migraine, unspecified, not intractable, without status migrainosus; J45.909 Unspecified asthma, uncomplicated; I10 Essential (primary) hypertension; G89.29 Other chronic pain; Z90.49 Acquired absence of other specified parts of digestive tract; Z87.442 Personal history of urinary calculi; Z79.899 Other long term (current) drug therapy; Z88.6 Allergy status to analgesic agent; Z88.8 Allergy status to other drugs, medicaments and biological substances
CPT/HCPCS: 36415; 76856; 80053; 81001; 81025; 85025; 85610; 85730; 87088; 99284

== ENCOUNTER 2020-02-17 13:29 | Emergency (ER) | payer MEDICAID ==
[~2020-02-17] VITALS: Ht 162.6 cm; Wt 106.0 kg
[~2020-02-17 13:29] MED LIST changes: +FERR324T4 PO; +MEDR10TA PO
[2020-02-17 14:26] LABS: BASOPHILS % (AUTO) 0.6 % (0-1); EOSINOPHILS % (AUTO) 0.6 % (0-6); HEMATOCRIT 34.5 % (35.0-45.0); HEMOGLOBIN 11.6 g/dl (12.0-16.0); LYMPHOCYTES # (AUTO) 2.3 X10'3 (1.1-4.8); LYMPHOCYTES % (AUTO) 32.5 % (21-51); MEAN CORPUSCULAR HEMOGLOBIN 24.6 PG (27.0-31.0); MEAN CORPUSCULAR HGB CONC 33.6 g/dL (33.0-36.5); MEAN CORPUSCULAR VOLUME 73.2 FL (78-98); MEAN PLATELET VOLUME 6.9 FL (7.4-10.4); MONOCYTES # (AUTO) 0.5 X10'3 (0-0.9); MONOCYTES % (AUTO) 6.6 % (2-12); NEUTROPHILS # (AUTO) 4.3 X10'3 (1.8-7.7); NEUTROPHILS % (AUTO) 59.7 % (42-75); PLATELET COUNT 347 X10'3 (140-440); RED BLOOD COUNT 4.71 X10'6 (4.20-5.60); RED CELL DISTRIBUTION WIDTH 15.2 % (11.5-14.5); WHITE BLOOD COUNT 7.2 X10'3 (4.5-11.0)
[2020-02-17 14:40] LABS: ALANINE AMINOTRANSFERASE 19 U/L (12-78); ALBUMIN 3.4 G/DL (3.4-5.0); ALBUMIN/GLOBULIN RATIO 0.8 (1.1-1.5); ALKALINE PHOSPHATASE 94 IU/L (46-116); ANION GAP 9 (8-16); ASPARTATE AMINO TRANSFERASE 13 U/L (10-37); BILIRUBIN,TOTAL 0.1 MG/DL (0.1-1.0); BLOOD UREA NITROGEN 8 MG/DL (7-18); BUN/CREATININE RATIO 8.7 (6.6-38.0); CALCIUM 8.8 MG/DL (8.5-10.1); CHLORIDE 106 MMOL/L (99-107); CREATININE 0.92 MG/DL (0.40-0.90); GLUCOSE 89 MG/DL (70-104); POTASSIUM 3.5 MMOL/L (3.5-5.1); SODIUM 142 MMOL/L (135-145); TOTAL CARBON DIOXIDE 27.4 MMOL/L (24-32); TOTAL PROTEIN 7.6 G/DL (6.4-8.2); eGFR 68 ML/MIN
--- NOTE | 2020-02-17 16:00 | NUR ---
pt stated that her and her are trying to concieve. HCG ordered prior to CT
[2020-02-17 16:19] LABS: LIPASE 88 U/L (73-393)
[2020-02-17 16:32] LABS: URINE HCG NEGATIVE (NEG)
[2020-02-17 16:37] VITALS: BP 148/98
[2020-02-17 16:43] LABS: CLARITY,URINE SLIGHTLY CLOUDY (Clear); COLOR,URINE YELLOW (Yellow); GLUCOSE, URINE NEGATIVE (Neg); KETONES,URINE NEGATIVE (Neg); LEUKOCYTE ESTERASE ,URINE NEGATIVE (Neg); NITRITES, URINE NEGATIVE (Neg); OCCULT BLOOD,URINE LARGE (Neg); PROTEIN,URINE TRACE mg/dl (Neg); UROBILINOGEN,URINE 0.2 E.U/dL (0.2-1.0)
[2020-02-17] MEDS ORDERED: iohexol 350MG/ML 100ml bottle IV ONE (16:55)
[2020-02-17 17:04] LABS: UA COLLECTION TYPE CLN CATCH MIDSTREAM
[2020-02-17 17:10] LABS: MUCUS STRANDS MANY /LPF (Neg)
[2020-02-17 17:11] LABS: SQUAMOUS EPITHELIAL CELL,UR MANY /LPF (FEW)
[2020-02-17 17:19] LABS: BACTERIA,URINE FEW /HPF (Neg); RBC,URINE 0-2 /HPF (0-2); WBC,URINE 0-4 /HPF (0-4)
== END 2020-02-17 18:15 | disposition home or self-care (01) ==
LOC: ER 13:32
DX: K44.9 Diaphragmatic hernia without obstruction or gangrene (principal); R07.89 Other chest pain; R11.0 Nausea; G43.909 Migraine, unspecified, not intractable, without status migrainosus; I10 Essential (primary) hypertension; J45.909 Unspecified asthma, uncomplicated; G89.29 Other chronic pain; F41.9 Anxiety disorder, unspecified; F32.9 Major depressive disorder, single episode, unspecified; Z87.442 Personal history of urinary calculi; Z90.49 Acquired absence of other specified parts of digestive tract; Z90.89 Acquired absence of other organs; Z98.890 Other specified postprocedural states; Z72.89 Other problems related to lifestyle; Z88.8 Allergy status to other drugs, medicaments and biological substances; Z79.899 Other long term (current) drug therapy
CPT/HCPCS: 36415; 71045; 71275; 74174; 80053; 81001; 81025; 83690; 83880; 84484; 85025; 93005; 99285; Q9967

== ENCOUNTER 2020-09-15 17:44 | Emergency (ER) | payer MEDICAID ==
[~2020-09-15] VITALS: Ht 165.1 cm; Wt 106.7 kg
[2020-09-15] MEDS ORDERED: LIDOcaine 1% W/epiNEPHrine 1:200,000 10ml vial IJ ONE (19:35)
[2020-09-15] MEDS ORDERED: SULF1TAB49 PO (19:49)
[2020-09-15 21:03] VITALS: BP 160/120
== END 2020-09-15 21:04 | disposition home or self-care (01) ==
LOC: ER 17:45
DX: L02.416 Cutaneous abscess of left lower limb (principal); G43.909 Migraine, unspecified, not intractable, without status migrainosus; I10 Essential (primary) hypertension; J45.909 Unspecified asthma, uncomplicated; G89.29 Other chronic pain; F41.9 Anxiety disorder, unspecified; F32.9 Major depressive disorder, single episode, unspecified; Z87.442 Personal history of urinary calculi; Z90.49 Acquired absence of other specified parts of digestive tract; Z90.89 Acquired absence of other organs; Z98.890 Other specified postprocedural states; Z72.89 Other problems related to lifestyle; Z88.5 Allergy status to narcotic agent; Z88.6 Allergy status to analgesic agent; Z88.8 Allergy status to other drugs, medicaments and biological substances; Z79.899 Other long term (current) drug therapy
CPT/HCPCS: 10060; 99283

== ENCOUNTER 2021-03-28 20:20 | Emergency (ER) | payer MEDICAID ==
[~2021-03-28] VITALS: Ht 165.1 cm; Wt 106.5 kg
[2021-03-28 20:55] VITALS: BP 142/98
== END 2021-03-29 02:23 | disposition left against medical advice (07) ==
LOC: ER 20:21
DX: G43.909 Migraine, unspecified, not intractable, without status migrainosus (principal); Z53.21 Procedure and treatment not carried out due to patient leaving prior to being seen by health care provider

== ENCOUNTER 2021-09-20 18:31 | Emergency (ER) | payer MEDICAID ==
[~2021-09-20] VITALS: Ht 165.1 cm; Wt 103.0 kg
[2021-09-20 19:49] VITALS: BP 161/98
[2021-09-20] MEDS ORDERED: cephalexin 250mg capsule PO ONE (23:15)
[2021-09-20] MEDS ORDERED: ondansetron 4mg rapidly disintigrating tab PO ONE (23:50)
[2021-09-20] MEDS ORDERED: oxyCODONE IR 5mg (immed. release) tablet PO ONE (23:50)
[2021-09-20] MEDS ORDERED: CEPH500C2 PO (23:51)
== END 2021-09-21 00:05 | disposition home or self-care (01) ==
LOC: ER 18:32
DX: L02.11 Cutaneous abscess of neck (principal); G43.909 Migraine, unspecified, not intractable, without status migrainosus; G89.29 Other chronic pain; M54.50 Low back pain, unspecified; Z88.8 Allergy status to other drugs, medicaments and biological substances; Z88.6 Allergy status to analgesic agent; Z90.49 Acquired absence of other specified parts of digestive tract; Z98.890 Other specified postprocedural states
CPT/HCPCS: 99284

== ENCOUNTER 2021-10-18 08:00 | Inpatient (IN) | payer MEDICAID ==
[2021-10-15 11:10] LABS: BASOPHILS % (AUTO) 0.4 % (0-1); EOSINOPHILS % (AUTO) 0.5 % (0-6); LYMPHOCYTES # (AUTO) 1.9 X10'3 (1.1-4.8); LYMPHOCYTES % (AUTO) 22.3 % (21-51); MEAN CORPUSCULAR HEMOGLOBIN 22.1 PG (27.0-31.0); MEAN CORPUSCULAR HGB CONC 31.6 g/dL (33.0-36.5); MEAN PLATELET VOLUME 7.1 FL (7.4-10.4); MONOCYTES # (AUTO) 0.5 X10'3 (0-0.9); MONOCYTES % (AUTO) 6.4 % (2-12); NEUTROPHILS % (AUTO) 70.4 % (42-75); PRE OP HEMATOCRIT 34.8 % (35.0-45.0); PRE OP PLATELET COUNT 320 X10'3 (140-440); RED BLOOD COUNT 4.98 X10'6 (4.20-5.60); RED CELL DISTRIBUTION WIDTH 17.5 % (11.5-14.5)
[2021-10-15 11:28] LABS: ALBUMIN 3.5 G/DL (3.4-5.0); ALBUMIN/GLOBULIN RATIO 0.8 (1.1-1.5); ALKALINE PHOSPHATASE 76 IU/L (46-116); BLOOD UREA NITROGEN 7 MG/DL (7-18); BUN/CREATININE RATIO 8.6 (6.6-38.0); CALCIUM 8.7 MG/DL (8.5-10.1); CHLORIDE 105 MMOL/L (99-107); CREATININE 0.81 MG/DL (0.40-0.90); PRE OP ALT 15 U/L (30-65); PRE OP ANION GAP 7 (8-16); PRE OP AST 15 U/L (10-37); PRE OP BILIRUB, TOTAL 0.3 MG/DL (0.0-1.0); PRE OP GLUCOSE 110 MG/DL (70-104); PRE OP POTASSIUM 3.6 MMOL/L (3.4-5.1); PRE OP SODIUM 142 MMOL/L (135-145); TOTAL CARBON DIOXIDE 30.1 MMOL/L (24-32); TOTAL PROTEIN 7.8 G/DL (6.4-8.2); eGFR 78 ML/MIN
[2021-10-15 11:41] LABS: HCG SERUM QL NEGATIVE
[2021-10-18] VITALS (28 sets, daily range): BP systolic 126–147; BP diastolic 76–98
[~2021-10-18] VITALS: Ht 165.1 cm; Wt 100.8 kg
[~2021-10-18 08:00] MED LIST changes: +BACL10TA2 PO; +DICY20TA17 PO; +DIPH25CA83 PO; -DOCU-148 PO; -DOXY1TAB3 PO; -FERR324T4 PO; +FERR325T29 PO; +GABA-530 PO; +GABA300C PO; +HYDR12.55 PO; -MEDR10TA PO; -ONDA4TAB12 PO; -ONDA4TAB6 PO; -PROM12.574; +VERA40TA5 PO; +ceFAZolin inj. 2,000 MG in dextrose 5%-water 100 ML IV ONE; +famotidine 20mg tablet PO ONE; +ringers solution, lacted 1,000 ML IV SCH
[2021-10-18] MEDS ORDERED: morphine 2 MG/ML inj. syringe IV PRN (08:20)
[2021-10-18] MEDS ORDERED: ringers solution, lacted 1,000 ML IV SCH (08:20)
[2021-10-18] MEDS ORDERED: meperidine/PF 25mg/ml syringe IV PRN ×3 (08:20)
[2021-10-18] MEDS ORDERED: morphine 4 MG/ML inj SYRINge IV PRN (08:20)
[2021-10-18] MEDS ORDERED: ondansetron/PF 4mg/2ml inj IV PRN (08:20)
[2021-10-18] MEDS ORDERED: OMEP20CA16 PO (08:39)
[2021-10-18] MEDS ORDERED: LIDOcaine 1% 30ml preserv. free vial ONE (10:00)
[2021-10-18] MEDS ORDERED: BUPIVAcaine/PF 2.5 mg/ml (0.25%) 30ml vial ONE (10:00)
[2021-10-18] MEDS ORDERED: midazolam 1 mg/ML 2ml injection ONE (10:14)
[2021-10-18] MEDS ORDERED: fentaNYL /PF 50mcg/ml 5ml ampule ONE (10:14)
[2021-10-18] MEDS ORDERED: LIDOcaine 2% (20mg/ml) 5ml vial ONE (10:21)
[2021-10-18] MEDS ORDERED: rocuronium 10mg/ml inj IV ONE (10:21)
[2021-10-18] MEDS ORDERED: propofol inj 20 ML IV ONE (10:21)
[2021-10-18] MEDS ORDERED: dexamethasone sod phosphate 4mg/ml inj. ONE (10:22)
--- NOTE | 2021-10-18 12:30 | NUR ---
Received from OR via BED IN STABLE CONDITION , accompanied by Anesthesiologist and ELECTRICAL MAINTENANCE MAN report given by ELECTRICAL MAINTENANCE MAN AND Anesthesiolgist. Addendum: 10/18/21 at 1340 by Trinity Mcrae RN Amended: Links added.
[2021-10-18] MEDS ORDERED: naloxone 0.4 mg/ml inj IV PRN (12:40)
[2021-10-18] MEDS ORDERED: PER5325T PO (12:44)
[2021-10-18] MEDS ORDERED: diphenhydrAMINE 25mg capsule PO PRN (13:30)
[2021-10-18] MEDS: oxyCODONE/APAP 5-325mg tablet PO PRN ×2 (15:26→22:24)
--- NOTE | 2021-10-18 16:20 | NUR ---
PATIENT DISCHARGED FROM PACU IN STABLE CONDITION AFTER REPORT GIVEN TO RN TAKING OVER PATIENTS CARE. PATIENT TRANSFERRED TO ROOM [facility] VIA BED WITH RN. Addendum: 10/18/21 at 1724 by Trinity Mcrae RN Amended: Links added.
--- NOTE | 2021-10-18 16:25 | NUR ---
Pt transferred from Recovery Room to 4020b via bed. Pt awake and alert. VSS. Lap sitesx5 with dermabond to abd CDI. Pt insistant on ambulating and attempted to ambulate in halls with assist and reported nausea after about 15 ft. Assisted pt back to bed and Zofran given for nausea.
[2021-10-18] MEDS: ondansetron/PF 4mg/2ml inj IV PRN (16:45)
--- NOTE | 2021-10-18 18:20 | NUR ---
Patient in room ORTHO 4015. I have received report from Maynor PAUL and had the opportunity to ask questions and assume patient care. Addendum: 10/18/21 at 1842 by Zakia Dill RN Amended: Links added.
--- NOTE | 2021-10-18 19:00 | NUR ---
Pt.awake A & O at this time. C/o of abd pain but no c/o n/v at this time- pt. medicated for pain. Incision sites FLAVIO with no s/s of redness, swelling or drainage at this time. Call light within reach and bed in low position. Addendum: 10/19/21 at 0236 by Zakia Dill RN Amended: Links added.
[2021-10-18] MEDS: HYDROmorphone inj. 0.5 MG/0.5 ML DISP.SYRIN IV PRN (19:08)
[2021-10-18] MEDS ORDERED: non-formulary drug (Omeprazole 1 CAP) PO SCH (20:00)
[2021-10-18] MEDS: HYDROchlorothiazide 12.5mg capsule PO SCH (22:25)
[2021-10-18] MEDS: pantoprazole 40mg Tablet.DR PO SCH (22:26)
[2021-10-18] MEDS: gabapentin 300mg capsule PO SCH (22:27)
[2021-10-18] MEDS: heparin, porcine 5000 units/ml vial SQ SCH (22:27)
[2021-10-19 02:00] VITALS: BP 133/86
[2021-10-19] MEDS: ondansetron/PF 4mg/2ml inj IV PRN ×3 (04:31→21:27)
[2021-10-19 05:00] VITALS: BP 145/100
[2021-10-19] MEDS: HYDROmorphone inj. 0.5 MG/0.5 ML DISP.SYRIN IV PRN ×4 (05:09→22:06)
--- NOTE | 2021-10-19 06:30 | NUR ---
Problems reprioritized. Patient report given, questions answered & plan of care reviewed with Kalyn PAUL. Addendum: 10/19/21 at 0652 by Zakia Dill RN Amended: Links added.
[2021-10-19] MEDS: heparin, porcine 5000 units/ml vial SQ SCH ×2 (08:35→20:14)
[2021-10-19] MEDS: pantoprazole 40mg Tablet.DR PO SCH ×2 (08:35→20:13)
[2021-10-19] MEDS: ferrous sulfate 325mg tablet PO SCH (08:35)
[2021-10-19] MEDS: gabapentin 100mg capsule PO SCH ×2 (08:36→12:14)
[2021-10-19] MEDS: baclofen 10mg tablet PO SCH (08:36)
[2021-10-19] MEDS ORDERED: ringers solution, lacted 1,000 ML IV ONE (09:50)
[2021-10-19 10:00] VITALS: BP 157/40
[2021-10-19] MEDS: oxyCODONE/APAP 5-325mg tablet PO PRN (12:14)
[2021-10-19 18:00] VITALS: BP 136/71
--- NOTE | 2021-10-19 18:20 | NUR ---
Patient report given, questions answered & plan of care reviewed with Jeannie Ricci RN.
[2021-10-19] MEDS: gabapentin 300mg capsule PO SCH (20:13)
[2021-10-19] MEDS: HYDROchlorothiazide 12.5mg capsule PO SCH (20:13)
[2021-10-19 22:00] VITALS: BP 141/100
[2021-10-20] MEDS: HYDROmorphone inj. 0.5 MG/0.5 ML DISP.SYRIN IV PRN ×3 (01:59→11:32)
[2021-10-20 06:00] VITALS: BP 129/93
--- NOTE | 2021-10-20 06:22 | NUR ---
Problems reprioritized. Patient report given, questions answered & plan of care reviewed with BEVERLY Mccain.
[2021-10-20] MEDS: ondansetron/PF 4mg/2ml inj IV PRN ×2 (07:18→21:06)
[2021-10-20] MEDS: ferrous sulfate 325mg tablet PO SCH (08:00)
[2021-10-20] MEDS: gabapentin 100mg capsule PO SCH ×2 (08:17→12:16)
[2021-10-20] MEDS: baclofen 10mg tablet PO SCH (08:18)
[2021-10-20] MEDS: heparin, porcine 5000 units/ml vial SQ SCH ×2 (08:18→20:33)
[2021-10-20] MEDS: pantoprazole 40mg Tablet.DR PO SCH ×2 (08:18→20:33)
[2021-10-20] MEDS ORDERED: RIZA5TAB17 PO (09:44)
[2021-10-20 10:00] VITALS: BP 129/93
[2021-10-20] MEDS ORDERED: SUMAtriptan 25 MG tablet PO PRN (10:00)
[2021-10-20] MEDS: ACETAMINOPHEN PO PRN ×2 (11:33→21:36)
[2021-10-20] MEDS: CAFFEINE PO PRN ×2 (11:33→21:36)
[2021-10-20] MEDS: oxyCODONE/APAP 5-325mg tablet PO PRN ×2 (16:12→20:52)
--- NOTE | 2021-10-20 18:00 | NUR ---
Patient in room ORTHO 4020. I have received report from BEVERLY Mccain and had the opportunity to ask questions and assume patient care.
--- NOTE | 2021-10-20 18:25 | NUR ---
Problems reprioritized. Patient report given, questions answered & plan of care reviewed with ANGELES Mccain.
[2021-10-20 20:30] VITALS: BP 145/104
[2021-10-20] MEDS: gabapentin 300mg capsule PO SCH (20:33)
[2021-10-20] MEDS: HYDROchlorothiazide 12.5mg capsule PO SCH (20:33)
[2021-10-20 22:00] VITALS: BP_SYST 130; BP_SYST 137; BP_DIAS 88; BP_DIAS 90
--- NOTE | 2021-10-21 01:13 | NUR ---
At 0000 patient did not want to ambulate. Will encourage patient to ambulate again at 0400.
--- NOTE | 2021-10-21 01:38 | NUR ---
reviewed and agree with AUTISTIC TEACHER assessment findings.
[2021-10-21] MEDS: oxyCODONE/APAP 5-325mg tablet PO PRN ×4 (02:46→18:41)
[2021-10-21 06:00] VITALS: BP 131/94
--- NOTE | 2021-10-21 06:24 | NUR ---
Problems reprioritized. Patient report given, questions answered & plan of care reviewed with BEVERLY Bach.
--- NOTE | 2021-10-21 06:43 | NUR ---
Patient in room ORTHO 4020B. I have received report from ANGELES ISIDRO and had the opportunity to ask questions and assume patient care.
[2021-10-21] MEDS: ferrous sulfate 325mg tablet PO SCH (08:00)
[2021-10-21] MEDS: ondansetron/PF 4mg/2ml inj IV PRN ×2 (08:09→19:01)
[2021-10-21] MEDS: CAFFEINE PO PRN (10:21)
[2021-10-21] MEDS: ACETAMINOPHEN PO PRN (10:21)
[2021-10-21 11:25] VITALS: BP 135/95
[2021-10-21] MEDS: pantoprazole 40mg Tablet.DR PO SCH ×2 (11:30→20:09)
[2021-10-21] MEDS: gabapentin 100mg capsule PO SCH ×2 (11:30→12:00)
[2021-10-21] MEDS: baclofen 10mg tablet PO SCH (11:31)
[2021-10-21] MEDS: dicyclomine 10 MG capsule PO PRN ×2 (11:32→20:28)
[2021-10-21] MEDS: heparin, porcine 5000 units/ml vial SQ SCH ×2 (11:32→20:08)
[2021-10-21 18:00] VITALS: BP 130/99
--- NOTE | 2021-10-21 18:27 | NUR ---
Patient in room ORTHO 4020. I have received report from BEVERLY Lyn and had the opportunity to ask questions and assume patient care.
--- NOTE | 2021-10-21 19:45 | NUR ---
PATIENT NOT BEING DISCHARGED HOME TONIGHT. HER RIDE WENT TO MARKET DEVELOPMENT EXECUTIVE HER MEDS FROM [facility] AND THE PHARMACY WAS CLOSED AT 1800. PATIENT HAS NO WAY OF GETTING HER PAIN MEDS TONIGHT AND WILL NOT BE ABLE TO GET THEM UNTIL THE MORNING AFTER 8am. MANAGER FINANCE, JUAN ALBERTO NOTIFIED WELL MESSAGE LEFT ON DR. DE LA FUENTE CELL PHONE.
[2021-10-21 20:00] VITALS: BP 138/94
--- NOTE | 2021-10-21 20:00 | NUR ---
Patient stated she felt nausea and did not want to ambulate at 2000.
[2021-10-21] MEDS: HYDROchlorothiazide 12.5mg capsule PO SCH (20:09)
[2021-10-21] MEDS: gabapentin 300mg capsule PO SCH (20:09)
--- NOTE | 2021-10-21 20:22 | NUR ---
Problems reprioritized. Patient report given, questions answered & plan of care reviewed with ANGELES ISIDRO.
[2021-10-21 22:00] VITALS: BP 137/93
--- NOTE | 2021-10-22 | NUR ---
Patient refused to ambulate at 0000. I encouraged patient to ambulate. Will encourage again at 0400.
--- NOTE | 2021-10-22 04:00 | NUR ---
Patient refused to ambulate. Will inform day shift nurse to encourage patient to walk.
[2021-10-22] MEDS: oxyCODONE/APAP 5-325mg tablet PO PRN ×2 (04:08→09:03)
--- NOTE | 2021-10-22 06:19 | NUR ---
Problems reprioritized. Patient report given, questions answered & plan of care reviewed with BEVERLY Lyn.
--- NOTE | 2021-10-22 07:06 | NUR ---
Patient in room ORTHO 4020B. I have received report from ANGELES ISIDRO and had the opportunity to ask questions and assume patient care.
--- NOTE | 2021-10-22 07:15 | NUR ---
AGREE WITH PATIENT ASSMT BY SANNA REYNOSO. PATIENT SLEPT MOST OF THE NIGHT WITHOUT FURTHER C/O NAUSEA
[2021-10-22] MEDS: ferrous sulfate 325mg tablet PO SCH (08:00)
[2021-10-22] MEDS: ondansetron/PF 4mg/2ml inj IV PRN (09:03)
[2021-10-22] MEDS: baclofen 10mg tablet PO SCH (09:03)
[2021-10-22] MEDS: pantoprazole 40mg Tablet.DR PO SCH (09:04)
[2021-10-22] MEDS: gabapentin 100mg capsule PO SCH (09:04)
[2021-10-22] MEDS: heparin, porcine 5000 units/ml vial SQ SCH (09:04)
[2021-10-22] MEDS: dicyclomine 10 MG capsule PO PRN (09:26)
[2021-10-22 10:00] VITALS: BP 141/96
--- NOTE | 2021-10-22 10:52 | NUR ---
PATIENT STABLE AND APPROPRIATE FOR DISCHARGE, IV REMOVED, NEW MEDS E-SCRIPTED TO PREFERRED PHARMACY, EDUCATION GIVEN, ALL BELONGINGS SENT WITH PATIENT, PATIENT TAKEN TO LOBBY BY WHEELCHAIR TO AN AWAITING CAR WHERE MOTHER WILL TAKE PATIENT HOME
== END 2021-10-22 10:52 | disposition home or self-care (01) | DRG 220 ==
LOC: PAS IN 08:00 → ORTHO 4S 16:20
PROVIDERS: ADMIT Surgery; ATTEND Surgery
PROC: 8E0W4CZ Robotic Assisted Procedure of Trunk Region, Percutaneous Endoscopic Approach (ICD-10-PCS; 2021-10-18)
PROC: 0DV44ZZ Restriction of Esophagogastric Junction, Percutaneous Endoscopic Approach (ICD-10-PCS; 2021-10-18)
PROC: 0BUT4JZ Supplement Diaphragm with Synthetic Substitute, Percutaneous Endoscopic Approach (ICD-10-PCS; principal; 2021-10-18 10:08)
DX: K44.9 Diaphragmatic hernia without obstruction or gangrene (principal); E66.01 Morbid (severe) obesity due to excess calories; Z68.37 Body mass index [BMI] 37.0-37.9, adult; F41.9 Anxiety disorder, unspecified; F32.A Depression, unspecified; K21.9 Gastro-esophageal reflux disease without esophagitis; Z88.8 Allergy status to other drugs, medicaments and biological substances; Z79.899 Other long term (current) drug therapy
CPT/HCPCS: 36415; 71045; 80053; 82948; 84703; 85025; 87081; 87811; 93005; A4615; A4618; C1758; C1781; G0378; J0690; J1100; J1170; J1644; J2175; J2250; J2270; J2405; J2704; J3010; J3490; J7060; J7120

== ENCOUNTER 2022-11-19 16:53 | Emergency (ER) | payer OTHER, MEDICAID ==
[~2022-11-19] VITALS: Ht 165.1 cm; Wt 105.0 kg
[~2022-11-19 16:53] MED LIST changes: +OMEP20CA16 PO; +PER5325T PO; +RIZA5TAB17 PO; -ceFAZolin inj. 2,000 MG in dextrose 5%-water 100 ML IV ONE; -famotidine 20mg tablet PO ONE; -ringers solution, lacted 1,000 ML IV SCH
[2022-11-19 17:00] VITALS: BP 163/111; PULSE 97; RESP 18; TEMP 97.5; O2SAT 97
[2022-11-19] MEDS ORDERED: NAPR-1154 PO (19:15)
--- NOTE | 2022-11-19 19:28 | NUR ---
wound cleaned and dressing applied
== END 2022-11-19 19:30 | disposition home or self-care (01) ==
LOC: ER 16:55
DX: S90.02XA Contusion of left ankle, initial encounter (principal); S80.211A Abrasion, right knee, initial encounter; W18.39XA Other fall on same level, initial encounter; Z91.81 History of falling; Y93.89 Activity, other specified; Y92.89 Other specified places as the place of occurrence of the external cause; Y99.8 Other external cause status
CPT/HCPCS: 73564; 73610; 99284

== ENCOUNTER 2024-02-06 15:11 | Emergency (ER) | payer MEDICAID ==
[~2024-02-06] VITALS: Ht 165.1 cm; Wt 105.5 kg
[~2024-02-06 15:11] MED LIST changes: +NAPR-1154 PO
[2024-02-06 16:08] LABS: ALANINE AMINOTRANSFERASE 17 U/L (12-78); ALBUMIN 3.6 G/DL (3.4-5.0); ALBUMIN/GLOBULIN RATIO 0.8 (1.1-1.5); ALKALINE PHOSPHATASE 90 IU/L (46-116); ANION GAP 8 (8-16); ASPARTATE AMINO TRANSFERASE 10 U/L (10-37); BILIRUBIN,TOTAL 0.3 MG/DL (0.1-1.0); BLOOD UREA NITROGEN 12 MG/DL (7-18); BUN/CREATININE RATIO 10.5 (10.0-20.0); CALCIUM 8.9 MG/DL (8.5-10.1); CHLORIDE 100 MMOL/L (99-107); CREATININE 1.14 MG/DL (0.40-0.90); GLUCOSE 141 MG/DL (70-104); POTASSIUM 3.3 MMOL/L (3.5-5.1); SODIUM 138 MMOL/L (135-145); TOTAL CARBON DIOXIDE 30.2 MMOL/L (24-32); TOTAL PROTEIN 8.2 G/DL (6.4-8.2); eCRCL 57 ML/MIN; eGFR 52 ML/MIN
[2024-02-06 16:13] VITALS: TEMP 98.4
[2024-02-06 16:19] LABS: PRO BRAIN NATRIURETIC PEPTIDE < 30 PG/ML (0-125)
[2024-02-06 16:21] LABS: BASOPHILS # (AUTO) 0.1 X10'3 (0-0.2); BASOPHILS % (AUTO) 0.6 % (0-1); EOSINOPHILS % (AUTO) 0.3 % (0-6); HEMATOCRIT 41.2 % (35.0-45.0); LYMPHOCYTES # (AUTO) 2.9 X10'3 (1.1-4.8); LYMPHOCYTES % (AUTO) 21.9 % (21-51); MEAN CORPUSCULAR HEMOGLOBIN 27.9 PG (27.0-31.0); MEAN CORPUSCULAR HGB CONC 33.9 g/dL (33.0-36.5); MEAN CORPUSCULAR VOLUME 82.2 FL (78-98); MEAN PLATELET VOLUME 7.4 FL (7.4-10.4); MONOCYTES # (AUTO) 0.7 X10'3 (0-0.9); MONOCYTES % (AUTO) 5.2 % (2-12); NEUTROPHILS # (AUTO) 9.7 X10'3 (1.8-7.7); PLATELET COUNT 412 X10'3 (140-440); RED BLOOD COUNT 5.01 X10'6 (4.20-5.60); RED CELL DISTRIBUTION WIDTH 13.4 % (11.5-14.5); WHITE BLOOD COUNT 13.5 X10'3 (4.5-11.0)
[2024-02-06] MEDS ORDERED: POTA-192 PO (17:13)
[2024-02-06 17:36] VITALS: BP 163/121; PULSE 100; RESP 16; O2SAT 98
[2024-02-06] MEDS: POTASSIUM BICARB 20meq eff tab 20 MEQ TABLET.EFF PO SCH (17:36)
== END 2024-02-06 17:39 | disposition home or self-care (01) ==
LOC: ER 15:12
DX: R79.89 Other specified abnormal findings of blood chemistry (principal); E87.6 Hypokalemia; I10 Essential (primary) hypertension; J45.909 Unspecified asthma, uncomplicated; G89.29 Other chronic pain; M54.9 Dorsalgia, unspecified; G43.909 Migraine, unspecified, not intractable, without status migrainosus; F41.9 Anxiety disorder, unspecified; F32.A Depression, unspecified; Z90.49 Acquired absence of other specified parts of digestive tract; Z90.89 Acquired absence of other organs; Z88.8 Allergy status to other drugs, medicaments and biological substances; Z88.6 Allergy status to analgesic agent; Z88.5 Allergy status to narcotic agent; Z72.89 Other problems related to lifestyle; Z79.899 Other long term (current) drug therapy
CPT/HCPCS: 36415; 71045; 80053; 83880; 84484; 85025; 93005; 99285

== ENCOUNTER 2024-10-29 13:04 | Outpatient (CLI) | payer MEDICAID ==
--- NOTE | 2024-10-29 21:25 | RADIOLOGY REPORT ---
EXAM: MR MRI UPPER EXTREMITY LEFT INDICATION: 44 years old, Female; LEFT SHOULDER PAIN. LEFT SHOULDER PAIN TECHNIQUE: Multiplanar, multisequence MR images of the left shoulder were obtained in the absence of gadolinium contrast material. COMPARISON: None available at the time of dictation. FINDINGS: [CORACOACROMIAL ARCH]: Mild capsular hypertrophy of the acromioclavicular joint. Intact coracoclavicu lar ligaments. Intact coracoacromial ligaments. No subacromial/subdeltoid bursal fluid. [ROTATOR CUFF]: Intact. Question mild intermediate to high signal intensity and thickening of the ant erior leading edge of the supraspinatus. [BICEPS TENDON]: Intact without tenosynovitis. [LABRUM]: Intact. [CARTILAGE]: No measurable cartilage defect. [GLENOHUMERAL JOINT]: No joint effusion. No intra-articular body. Mild thickening of the axillary farhan ch of the glenohumeral joint. [BONES]: No acute fracture, osseous contusion, or aggressive focal osseous lesion. [MUSCLES]: Normal muscle bulk of the rotator cuff muscles. [NEUROVASCULAR/LYMPH NODES]: Normal. [OTHER]: None. IMPRESSION: 1. Mild thickening of the axillary pouch. Correlate for adhesive capsulitis. 2. Question mild tendinosis of the anterior leading edge of the superior rotator cuff.
== END 2024-10-29 23:59 | disposition home or self-care (01) ==
LOC: MRI02 13:04
PROVIDERS: ATTEND Orthopaedic Surgery
DX: S46.012A Strain of muscle(s) and tendon(s) of the rotator cuff of left shoulder, initial encounter (principal); M25.512 Pain in left shoulder; X58.XXXA Exposure to other specified factors, initial encounter; Y93.89 Activity, other specified; Y92.89 Other specified places as the place of occurrence of the external cause; Y99.8 Other external cause status
CPT/HCPCS: 73221